=== PATIENT | male | born 1970 | race Caucasian/White ===

== ENCOUNTER 2021-08-25 10:04 | Emergency (ER) | payer OTHER, SELFPAY ==
--- NOTE | ~2021-08-25 | XR_ITS ---
EXAMINATION: XR CHEST CLINICAL INFORMATION: Shortness of breath COMPARISON: 07/10/2019 TECHNIQUE: 2 views of the chest were obtained. FINDINGS: No focal consolidation, pulmonary edema, or pleural effusion. Stable cardiomediastinal silhouette. XR/XR chest 2V IMPRESSION: No acute cardiopulmonary findings.
[2021-08-25 10:23] VITALS: BP 143/92; PULSE 68; RESP 19; TEMP 36.6; O2SAT 98; BMI 25.7
--- NOTE | 2021-08-25 12:23 | ED_ITS ---
HPI - URI/Sore Throat General Chief Complaint: Upper Respiratory Symptoms Stated Complaint: covid + chest pain sob Time Seen by Provider: 08/25/21 12:23 Source: patient Mode of arrival: ambulatory Limitations: no limitations History of Present Illness HPI Narrative: 50 y/o male presenting with cough and SOB. He was diagnosed with COVID 5 days ago. He is fully vaccinated boosted. He has no underlying asthma or COPD. He is a nonsmoker. He reports he was outside in his yd doing bunch of [employer] work yesterday even though he was not feeling great. Today he woke up with increased cough and shortness of breath. He reports his chest feels tight when he is coughing and exerting himself. He admits to decreased p.o. appetite and upset stomach but denies any nausea, vomiting, abdominal pain. He does not have a [facility] pulse oximeter but was afraid his oxygen levels were low given how he felt this morning. MD elicited complaint: fever, cough and other (Shortness of breath) Onset (ago): day(s) Consistency: improved Severity: moderate Description of mucous: clear Able to tolerate fluids by mouth: Yes Exacerbating factors: exertion Relieving factors: rest Context: sick contacts Associated symptoms: fever, myalgias, headache, nasal congestion, cough, chest pain and shortness of breath Treatments prior to arrival: none Related Data Allergies Allergy/AdvReac Type Severity Reaction Status Date / Time acetaminophen [From TYLENOL] Allergy Unknown VOMITING Unverified 12/29/19 18:09 Review of Systems Review of Systems: Constitutional: No Fever, No Chills ENT/Mouth: No sore throat, No Rhinorrhea, No Swallowing Difficulty Cardiovascular: + Chest Pain, +SOB, No Orthopnea, No Edema Respiratory: +Cough, No Sputum, No Wheezing, + dyspnea Gastrointestinal: No Nausea, No Vomiting, No Diarrhea, No abdominal Pain Musculoskeletal: No joint pain, No Myalgias Skin: No Skin Lesions, No rash Neuro: No Weakness, No Numbness, No Dizziness, No Headache Psych: + Anxiety/Panic Heme/Lymph: No Bruising, No Lymphadenopathy PMFSH Social History Social History Advance Directives: No Advance Directives Information Provided: No Physical Exam Vital Signs: Vital Signs: Last Vital Signs Temp 98 F 08/25/21 10:23 Pulse 68 05/15/22 10:23 Resp 19 08/25/21 10:23 BP 143/92 H 08/25/21 10:23 Pulse Ox 98 08/25/21 10:23 BMI result Body Mass Index 25.7 Appearance: Alert. Oriented X3. No acute distress. Eyes: Pupils equal, round and reactive to light. ENT: Pharynx normal. Neck: Normal inspection. Neck supple. CVS: Normal heart rate and rhythm. Pulses normal. No chest wall tenderness. Respiratory: No respiratory distress. Breath sounds normal. Abdomen: Soft and nontender. +BS x4 Skin: Skin warm and dry. Normal skin color. Normal skin turgor. No rashes. Extremities: No lower extremity edema. No calf tenderness. Neuro: Oriented X 3. Grossly normal, nonfocal Course Course Course Narrative: 42-year-old male with known COVID-19 presents to the ER for evaluation of cough and shortness of breath today. He was exerting himself in the y[place] yesterday and felt worse when he woke up today. He is now feeling better after some rest. On arrival he is nontoxic and vital signs are within normal limits, SpO2 90% on room air. He appears well. His lungs sound clear. Chest x-ray is clear. No evidence of COVID pneumonia. Patient advised to obtain a home pulse oximeter for monitoring of his oxygen saturations at home. At this time is stable for discharge home with supportive care and outpatient follow-up. Discharge Plan Discharge Clinical Impression: COVID-19 Patient Disposition: Home, Self-Care Instructions: Covid-19 Viral Syndrome and Novel Coronavirus (ED) Hey/Ath Additional Instructions: Your chest x-ray and oxygen levels were normal. Rest. Drink plenty of fluids. Do not go out in public while you are not feeling well. Take over the counter cold/flu medications as needed for your symptoms. Take Tylenol and/or Motrin as needed for fevers and body aches. Follow up with your doctor this week. If you shortness of breath worsens, if you develop difficulty breathing or any other concerning symptom come back to the ER for further evaluation. Referrals: Patrick Kang MD [Primary Care Provider] - Stand Alone Forms: Work/School Release Interventions: ED Discharge Assessment Last Done: 08/25/21 13:40 Discharge Date/Time: 08/25/21 13:40
== END 2021-08-25 13:40 | disposition home or self-care (01) ==
PROVIDERS: Emergency Provider Emergency Medicine; PCP Internal Medicine
DX: U07.1 COVID-19 (principal)
CPT/HCPCS: 71046; 99283